=== PATIENT | male | born 1940 | race Caucasian/White ===

== ENCOUNTER 2016-11-18 22:16 | Inpatient (IN) | payer MEDICARE, BC ==
[~2016-11-18] VITALS: Ht 188 cm; Wt 76.9 kg
[~2016-11-18 22:16] MED LIST: ASPI-1085 PO; FLUT16SP EA NOSTRIL; LINA5TAB PO; OMEG100036 PO; PRAV10TA42 PO; TAMS0.4C47 PO
--- NOTE | 2016-11-18 22:16 | NUR ---
STATUS UPON PT ARRIVAL, HE ALREADY HAS AN INDWELLING CATHETER FOR URINARY RETENTION. CLEAR YELLOW URINE IN BAG
--- OUTSIDE RECORDS SUMMARY | 2016-11-18 22:19 | XMS REPORT | Continuity of Care Document ---
Author Author [facility] Organization [facility] Address Unknown Phone Unavailable Support Name Relationship Address Phone Anika REIS MD Caregiver [address] [place] [address] Unavailable HELENA BAILEY MD Caregiver [address] [place] [address] Unavailable VICKY GIBSON Next Of Kin [address] [place] [address] Insurance Providers Guarantor Ward Gibson Address [address] [place] [address] Email Payer [employer] Plan 65 Policy Number [id number] Subscriber's Name Ward Gibson Relationship 18 Self [facility] [id number] [facility] Policy Number [id number] Subscriber's Name Ward Gibson Relationship 18 Self Chief Complaint and Reason for Visit Chief Complaint Abdominal Pain Reason for Visit [id number] Constipation Problems Past Problems Medical Problem Onset Date Constipation Unknown Elevated serum creatinine Unknown Medications Current Home Medications Medication Dose Units Route Directions Days Qty Instructions Start Date Aspirin (Aspirin Ec) 81 Mg Tablet.dr 81 Mg Oral Daily 10/14/16 Fluticasone Propionate (Fluticasone Prop 50 Mcg/Actuation Nasal Zuni) 120 Zuni/16 G Zuni 1 Zuni Each Nostril Daily 16 10/14/16 Linagliptin (Tradjenta) 5 Mg Tablet 5 Mg Oral Daily 30 10/14/16 Barre-3/Dha/Epa/Fish Oil (Fish Oil 1,000 Mg Softgel) 1,000 Mg Capsule 1,000 Mg Oral Daily 1 10/14/16 Pravastatin Sodium 10 Mg Tablet 10 Mg Oral Daily 1 10/14/16 Tamsulosin Hcl 0.4 Mg Cap.er.24h 0.4 Mg Oral Daily 1 10/14/16 Social History Social History Problem Response Recorded Date/Time Onset Date Status Chewing Tobacco Status No 10/14/2016 4:33am Not Applicable Not Applicable Hx Substance Use No 10/14/2016 4:33am Not Applicable Not Applicable Hx Alcohol Use No 10/14/2016 4:33am Not Applicable Not Applicable Query Response Start Date Stop Date Smoking Status Never smoker Hospital Discharge Instructions No hospital discharge instructions. Plan of Care Discharge Date 10/14/16 5:48am Disposition 01 DISCHARGED HOME, SELF-CARE Condition at Discharge Improved Instructions/Education Provided Abdominal Pain (ED) Prescriptions See Medication Section Referrals Anika REIS MD Address: [place] [address] Additional Instructions/Education MiraLAX 17 g dose and a glass of water daily for constipation. Please follow-up with your primary care provider to repeat blood work and recheck your creatinine. Functional Status No functional status results. Allergies, Adverse Reactions, Alerts No known allergies. Immunizations No immunization records. Vital Signs Acute Vital Signs Vital Response Date/Time Temperature (Fahrenheit) 99.1 deg F (96.8 - 99.1) 10/14/2016 5:48am Temperature (Calculated Celsius) 37.56649 degrees C (36.0 - 37.3) 10/14/2016 5:48am Pulse Rate (adult) 73 bpm (60 - 100) 10/14/2016 5:48am Respiratory Rate 16 breaths/min (10 - 20) 10/14/2016 5:48am O2 Sat by Pulse Oximetry 97 % (90 - 100) 10/14/2016 5:48am Blood Pressure 133/65 mm Hg 10/14/2016 5:48am Height (Feet) 6 feet 10/14/2016 3:13am Height (Inches) 2.00 inches 10/14/2016 3:13am Weight (Kilograms) 78.100 kg 10/14/2016 3:13am Body Mass Index (BMI) 22.0 10/14/2016 3:13am Results Laboratory Results Test Name Result Units Flags Reference Collection Date/Time Result Date/ Time Comments White Blood Count 7.9 T/MM3 4.5-11.0 10/14/2016 3:46am 10/14/2016 3: 57am Red Blood Count 4.22 M/MM3 L 4.50-5.90 10/14/2016 3:46am 10/14/2016 3: 57am Hemoglobin 12.3 GM/DL L 13.5-17.5 10/14/2016 3:4610/14/2016 3:57am Hematocrit 36.3 % L 41-53 10/14/2016 3:4610/14/2016 3:57am Mean Corpuscular Volume 86.0 UM3 80-100 10/14/2016 3:4610/14/2016 3: 57am Mean Corpuscular Hemoglobin 29.1 UUG 26-34 10/14/2016 3:462016 3:57am Mean Corpuscular Hemoglobin Concent 33.9 GM/DL 31-37 10/14/2016 3:4610/14/2016 3:57am RDW Standard Deviation 38.0 FL 36.9-50.2 10/14/2016 3:4610/14/2016 3 :57am Platelet Count 192 T/MM3 130-400 10/14/2016 3:4610/14/2016 3:57am Mean Platelet Volume 11.9 UM3 9.4-12.4 10/14/2016 3:4610/14/2016 3: 57am Neutrophils (%) (Auto) 74.8 % H 33-66 10/14/2016 3:4610/14/2016 3: 57am Lymphocytes (%) (Auto) 16.3 % L 23-45 10/14/2016 3:4610/14/2016 3: 57am Monocytes (%) (Auto) 8.0 % 0-9.0 10/14/2016 3:4610/14/2016 3:57am Eosinophils (%) (Auto) 0.5 % 0-4 10/14/2016 3:4610/14/2016 3:57am Basophils (%) (Auto) 0.1 % 0-2 10/14/2016 3:4610/14/2016 3:57am Immature Granulocyte % (Auto) 0.3 % 0.0-0.5 10/14/2016 3:462016 3:57am Absolute Neutrophils (auto) 5.9 T/MM3 1.8-7.7 10/14/2016 3:46am 2016 3:57am Absolute Lymphocytes (auto) 1.3 T/MM3 1-4.8 10/14/2016 3:462016 3:57am Absolute Monocytes (auto) 0.6 T/MM3 0-0.8 10/14/2016 3:46am 10/14/2016 3:57am Absolute Eosinophils (auto) 0.0 T/MM3 0-0.5 10/14/2016 3:46am 2016 3:57am Absolute Basophils (auto) 0.0 T/MM3 0-0.2 10/14/2016 3:46am 10/14/2016 3:57am Absolute Immature Granulocyte (auto 0.02 T/MM3 0.00-0.03 10/14/2016 3: 46am 10/14/2016 3:57am Icterus Index < 2 0-7 10/14/2016 3:46am 10/14/2016 4:03am Chemistry Specimen Hemolysis < 15 0-25 10/14/2016 3:46am 10/14/2016 4 :03am 0-25: Specimen Exhibited No Hemolysis. Turbidity < 20 0-20 10/14/2016 3:46am 10/14/2016 4:03am Sodium Level 141 MEQ/L 134-144 10/14/2016 3:46am 10/14/2016 4:03am Potassium Level 4.0 MEQ/L 3.6-5 10/14/2016 3:46am 10/14/2016 4:03am Chloride Level 102 MEQ/L 98-107 10/14/2016 3:46am 10/14/2016 4:03am Carbon Dioxide Level 26 MEQ/L 22-30 10/14/2016 3:46am 10/14/2016 4: 03am Anion Gap 13 MEQ/L 5-15 10/14/2016 3:46am 10/14/2016 4:03am Blood Urea Nitrogen 36.0 MG/DL H 9-20 10/14/2016 3:46am 10/14/2016 4: 03am Creatinine 1.7 MG/DL H 0.8-1.5 10/14/2016 3:46am 10/14/2016 4:03am BUN/Creatinine Ratio 21 RATIO 6-26 10/14/2016 3:46am 10/14/2016 4:03am Glomerular Filtration Rate Calc 39 10/14/2016 3:46am 10/14/2016 4: 03am Glucose Level 188 MG/DL H 75-110 10/14/2016 3:46am 10/14/2016 4:03am Calculated Osmolality 284 MOSM/KG H 261-280 10/14/2016 3:46am 2016 4:03am Calcium Level 9.0 MG/DL 8.4-10.2 10/14/2016 3:46am 10/14/2016 4:03am Total Bilirubin 0.50 MG/DL 0.20-1.30 10/14/2016 3:46am 10/14/2016 4: 03am Alkaline Phosphatase 83 U/L 38-126 10/14/2016 3:46am 10/14/2016 4:03am Total Protein 6.4 G/DL 6.3-8.2 10/14/2016 3:46am 10/14/2016 4:03am Albumin 3.8 G/DL 3.5-5.0 10/14/2016 3:46am 10/14/2016 4:03am Globulin 2.6 G/DL 2.4-3.6 10/14/2016 3:46am 10/14/2016 4:03am Albumin/Globulin Ratio 1.5 RATIO 1.1-2.2 10/14/2016 3:46am 10/14/2016 4 :03am Aspartate Amino Transf (AST/SGOT) 16 U/L L 17-59 10/14/2016 3:46am 10/14 4:03am Alanine Aminotransferase (ALT/SGPT) 26 U/L 21-72 10/14/2016 3:46am 4:03am Urine Collection Type OROZCO INDWELLING 10/14/2016 5:00am 2016 5:07am Urine Color YELLOW YELLOW 10/14/2016 5:00am 10/14/2016 5:07am Urine Turbidity SL CLOUDY CLEAR 10/14/2016 5:00am 10/14/2016 5:07am Urine Specific [place] 1.015 1.015-1.025 10/14/2016 5:00am 2016 5:07am Urine pH 6.5 5.0-8.0 10/14/2016 5:00am 10/14/2016 5:07am Urine Leukocyte Esterase 1+ A NEGATIVE 10/14/2016 5:00am 10/14/2016 5: 07am Urine Nitrite POSITIVE A NEGATIVE 10/14/2016 5:00am 10/14/2016 5:07am Urine Protein 2+ A NEGATIVE 10/14/2016 5:00am 10/14/2016 5:07am Urine Glucose (UA) NEGATIVE NEGATIVE 10/14/2016 5:00am 10/14/2016 5: 07am Urine Ketones TRACE A NEGATIVE 10/14/2016 5:00am 10/14/2016 5:07am Urine Urobilinogen 0.2 EU/DL NORMAL 10/14/2016 5:00am 10/14/2016 5: 07am Urine Bilirubin NEGATIVE NEGATIVE 10/14/2016 5:00am 10/14/2016 5: 07am Urine Blood 3+ A NEGATIVE 10/14/2016 5:00am 10/14/2016 5:07am Urine WBC 5-10 /HPF H 0-5 10/14/2016 5:00am 10/14/2016 5:22am Urine RBC 3-5 /HPF H 0-3 10/14/2016 5:00am 10/14/2016 5:22am Urine Bacteria 1+ H NEGATIVE 10/14/2016 5:00am 10/14/2016 5:22am Urine Culture Indicated CULT REFLEXED &SETUP 10/14/2016 5:00am 5:22am Microbiology Results Procedure Source Organism/Result Collection Date/Time Result Date/Time Result Status Urine Culture Urine, Orozco Indwelling CULTURE INITIATED - RESULTS PENDING 10/14/2016 5:22am 10/14/2016 5:23am Preliminary Procedures Procedure Status Date Provider(s) X-rays bone survey complete Completed 09/04/16 Us exam abdo back wall comp Completed 10/01/16 Encounters Encounter Location Arrival/Admit Date Discharge/Depart Date Attending Provider Departed Emergency Room [facility] 10/14/16 3:13am 10/14/16 5: 48am HELENA BAILEY MD Registered [facility] 10/01/16 9:19am ALEXIS BARLOW MD Registered [facility] 09/04/16 9:32am Anika REIS MD Recent Diagnosis
[2016-11-18] MEDS ORDERED: NORMAL SALINE 1,000 ML IV ONE (22:25)
[2016-11-18] MEDS ORDERED: CEFTRIAXONE I.V. (ER USE ONLY) 1 G in NORMAL SALINE 100 ML IV ONE (22:30)
--- NOTE | 2016-11-18 22:36 | ERPDOC ---
HPI - Sepsis General Stated Complaint: UTI Time Seen by Provider: 22:25 Source: patient, family, EMS Exam Limitations: clinical condition HPI - Sepsis Initial Comments 76yo man presented to the ER by EMS tonight for AMS and hypotension. Pt was seen by his PCM earlier today and rx'ed cipro for a complicated UTI (has an indwelling benjamin 2/2 urinary retention). Pt has had a single dose this afternoon , but has not yet had his evening dose. Pt was found to be altered, with low blood pressure, elevated pulse, and decreased SaO2. Pt was previously treated for a complicated UTI 1/5mos ago. Occurred At: home Onset/Timing: Rapid Duration: 12-24 hrs Severity/Quality: moderate Modifying Factors: IMPROVES WITH: immobilization, WORSE WITH: jarring, movement Associated Sypmtoms: fever, other, weakness Hx of Similar Symptoms: No Allergies: Coded Allergies: No Known Allergies (Unverified , 10/14/16) Past History Unable to Obtain PMH Due to: clinical condition Patient Surgical History Negative for patient Past Medical History Metabolic: diabetes, hypercholesterolemia ENMT: allergies Cardiac: CAD Male: BPH Family History Family PMH: FOUND: hypertension Social History Substance Use Type: does not use Alcohol Intake: none Review of Systems Unable to Obtain ROS Due to: clinical condition Constitutional Constitutional: fever, weakness General: cloudy urine Male: retention Psychiatric Comments delirium Physical Exam General General Nourishment: well nourished, well developed, appears stated age, no acute distress, adult, thin General Body Habitus: well groomed Vitals and Pain First Documented Vital Signs Date Time Temp Pulse Resp B/P Pulse Ox O2 Delivery O2 Flow Rate FiO2 11/18/16 23:15 122/60 11/18/16 23:16 73 95 Room Air Weight: Kilograms: Height (feet): 6 Height (inches): 2.00 Triage Pain Scale: RN VS reviewed by Provider: Yes Normal Exams: Head: Normocephalic w/o trauma Eyes: Pupils are PERRLA w/ EOMI, No scleral icterus, irritation ENMT: No facial trauma, nasal exudates, pharyngeal erythema Neck: Full range of motion, without adenopathy, JVD Lymphatic: No lymphadenopathy Musculoskeletal: No tenderness, or deformity noted Integumentary: No rashes, hives, or bruising noted Neurologic: Patient is alert, and oriented Psychiatric: Patient exhibits, appropriate attention Respiratory (brief) Respiratory: FOUND: clear all rueda, equal bilaterally, symmetrical, NOT FOUND : rales, wheezes Cardiovascular (brief) Cardiac: FOUND: regular rate, regular rhythm, NOT FOUND: click, gallop, murmur , pedal edema, peripheral edema, rub Capillary Refill: <2 sec Pulses: all distal extremities, equal, strong Abdomen (brief) Abdominal Brief: FOUND: bowel normo active x4, soft, NOT FOUND: distended, hepatosplenomegaly, pulsatile mass, tender Sepsis Differential Diagnosis Considering: DKA, gastroenteritis, hypo/hyperglycemia, medication effect, meningitis, metabolic, pneumonia, pyelonephritis, sepsis, UTI Progress Results/Orders Orders Procedure Category Date Status Time Lactate - Lactic Acid LAB 11/18/16 Complete 22:25 Blood Culture ARAMIS 11/18/16 In Process 22:25 Normal Saline (Normal PHA 11/18/16 Complete Saline Iv) 22:25 Cbc W/Auto LAB 11/18/16 Complete Diff-Reflex Manual 22:25 Cmp - Comprehensive LAB 11/18/16 Complete Metabolic 22:25 Procalcitonin LAB 11/18/16 Complete 22:25 Iv Lock (Ed Only) EDM 11/18/16 Transmitted 22:25 Oxygen Administration EDM 11/18/16 Transmitted 22:25 Benjamin (Ed) EDM 11/18/16 Transmitted 22:25 Bgm (Ed) EDM 11/18/16 Transmitted 22:25 Chest 1 View RAD 11/18/16 Logged 22:25 Ceftriaxone I.V. (Er PHA 11/18/16 Complete Use Only) (Rocephin 22:30 Catheter Needs JONY 11/18/16 In Process Assessment 22:25 Bladder Scanner (Ed) EDM 11/18/16 Transmitted 22:25 UA, LAB 11/18/16 Complete Dip&Micro(Complete) & 23:35 Lab Results Laboratory Tests Test 11/18/16 22:49 11/18/16 23:35 White Blood Count 8.0T/MM3 Red Blood Count 4.70M/MM3 Hemoglobin 13.4GM/DL Hematocrit 40.2% Mean Corpuscular Volume 85.5UM3 Mean Corpuscular Hemoglobin 28.5UUG Mean Corpuscular Hemoglobin Concent 33.3GM/DL RDW Standard Deviation 40.3FL Platelet Count 164T/MM3 Mean Platelet Volume 12.1UM3 Immature Granulocyte % (Auto) % Neutrophils (%) (Auto) % Lymphocytes (%) (Auto) % Monocytes (%) (Auto) % Eosinophils (%) (Auto) % Basophils (%) (Auto) % Absolute Immature Granulocyte (auto T/MM3 Absolute Neutrophils (auto) T/MM3 Absolute Lymphocytes (auto) T/MM3 Absolute Monocytes (auto) T/MM3 Absolute Eosinophils (auto) T/MM3 Absolute Basophils (auto) T/MM3 Neutrophils % (Manual) 72.0% Band Neutrophils % 18.0% Lymphocytes % (Manual) 10.0% Absolute Neutrophils (Manual) 5.8T/MM3 Band Neutrophils # 1.4T/MM3 Lymphocytes # (Manual) 0.8T/MM3 Red Cell Morphology Comment Normal Turbidity < 20 Sodium Level 141MEQ/L Potassium Level 3.6MEQ/L Chloride Level 102MEQ/L Carbon Dioxide Level 25MEQ/L Anion Gap 14MEQ/L Blood Urea Nitrogen 27.0MG/DL Creatinine 1.7MG/DL Glomerular Filtration Rate Calc 39 BUN/Creatinine Ratio 16RATIO Glucose Level 204MG/DL Calculated Osmolality 282MOSM/KG Calcium Level 9.3MG/DL Total Bilirubin 1.20MG/DL Icterus Index < 2 Aspartate Amino Transf (AST/SGOT) 20U/L Alanine Aminotransferase (ALT/SGPT) 21U/L Alkaline Phosphatase 86U/L Total Protein 6.9G/DL Albumin 3.9G/DL Globulin 3.0G/DL Albumin/Globulin Ratio 1.3RATIO Plasma Lactate 1.7MMOL/L Procalcitonin 0.56NG/ML Chemistry Specimen Hemolysis < 15 Urine Collection Type Benjamin indwelling Urine Color Yellow Urine Turbidity Clear Urine pH 5.0 Urine Specific [place] 1.010 Urine Protein Negative Urine Glucose (UA) Negative Urine Ketones Negative Urine Blood 2+ Urine Nitrite Negative Urine Bilirubin Negative Urine Urobilinogen 0.2EU/DL Urine Leukocyte Esterase 3+ Urine RBC 1-3/HPF Urine WBC 5-10/HPF Urine Bacteria None seen Urine Culture Indicated Cult not indicated Medications Current ED Medications Sodium Chloride 1,000 ml @ 0 mls/hr Q0M ONCE IV Last administered on t 22:16; Start 11/18/16 at 22:25; Stop 11/18/16 at 22:28; Status DC Ceftriaxone Sodium 1 g/Sodium Chloride 100 ml @ 200 mls/hr O ONCE IV Last administered on 11/18/16 23:01; Start 11/18/16 at 22:30; Stop 11/18/16 at 22:59 ; Status DC Sodium Chloride (Normal Saline IV) 1,000 ml @ 150 mls/hr Q6H40M IV Last administered on 11/19/16 01:17; Start 11/19/16 at 00:05; Status UNV Progress Progress Pt refused CXR. Pt with complicated UTI headed towards urosepsis. Marked improvement following resuscitation efforts. Discussed admission vs d/c with hospitalist; after reviewing hospital course and status, will admit for overnight obs and continued treatment. Consult/PCP Consult/PCP #1: Physician Contacted: Dr. Denton (oncology) Time Called: 23:52 Time of first response: 23:58 Type of discussion: Phone Consult/PCP Discussion Details Pt has an indwelling benjamin 2/2 asymptomatic subacute retention and obstructive uropathy. W/u for prostate CA was neg. Plan for TURP in near future; pt is somewhat slow (AMS) at baseline. Consult/PCP #2: Physician Contacted: Charlie [facility] Time Called: 23:50 Time of first response: 23:55 Type of discussion: Phone Consult/PCP Discussion Details Will admit pt for overnight obs and adjustment of atbx. Departure Disposition Decision Date: Nov 19, 2016 Disposition Decision Time: 00:19 Disposition: 02 TO OBS [facility] Impression Impression Impression: Primary Impression: Complicated UTI (urinary tract infection) Additional Impressions: Obstructive uropathy Retention of urine Severity: Severe Condition: Improved Seen By: Physician only Referrals: Anika REIS MD (Family) Problems/Meds/Labs Reviewed?: Yes Medications reviewed and manag: Yes Follow up care ordered?: Yes Mental Status: Alert, Oriented Critical Care Note Total Time (mins): 30 Critical Care Spent: [id number] care of pt, Reviewing test results, Discuss the case w/staff, Documenting the MR, Discussion w/ family/DPOA During this visit the pt was: Critically Ill, At Risk of Deterioration SHALOM FOOTE Nov 18, 2016 22:36 17 at 00:15; Status UNV Morphine Sulfate (Morphine) 2 mg Q2H PRN IV PAIN; Start 11/19/16 at 00:15; Status UNV Ondansetron HCl (Zofran) 4 mg Q6H PRN IV NAUSEA &/OR VOMITING; Start 11/19/16 at 00:15; Status UNV Senna/Docusate Sodium (Senna Plus) 1 tab BID PO ; Start 11/19/16 at 09:00; Status UNV Magnesium Hydroxide (Mom) 30 ml DAILY PRN PO CONSTIPATION; Start 11/19/16 at 00 :15; Status UNV Docusate Sodium 100 mg 100 mg BID PO ; Start 11/19/16 at 09:00; Status UNV Ceftriaxone Sodium/Sodium Chloride (Rocephin/NS) 100 ml @ 100 mls/hr Q12H IV ; Start 11/19/16 at 08:00; Status UNV Progress Progress Pt refused CXR. Pt with complicated UTI headed towards urosepsis. Marked improvement following resuscitation efforts. Discussed admission vs d/c with hospitalist; after reviewing hospital course and status, will admit for overnight obs and continued treatment. Consult/PCP Consult/PCP #1: Physician Contacted: Dr. Denton (oncology) Time Called: 23:52 Time of first response: 23:58 Type of discussion: Phone Consult/PCP Discussion Details Pt has an indwelling benjamin 2/2 asymptomatic subacute retention and obstructive uropathy. W/u for prostate CA was neg. Plan for TURP in near future; pt is somewhat slow (AMS) at baseline. Consult/PCP #2: Physician Contacted: Charlie Fuentes Time Called: 23:50 Time of first response: 23:55 Type of discussion: Phone Consult/PCP Discussion Details Will admit pt for overnight obs and adjustment of atbx. Departure Disposition Decision Date: Nov 19, 2016 Disposition Decision Time: 00:19 Disposition: 02 TO OBS [facility] Impression Impression Impression: Primary Impression: Complicated UTI (urinary tract infection) Additional Impressions: Obstructive uropathy Retention of urine Severity: Severe Condition: Improved Seen By: Physician only Referrals: Anika REIS MD (Family) Problems/Meds/Labs Reviewed?: Yes Medications reviewed and manag: Yes Follow up care ordered?: Yes Mental Status: Alert, Oriented Critical Care Note Total Time (mins): 30 Critical Care Spent: [id number] care of pt, Reviewing test results, Discuss the case w/staff, Documenting the MR, Discussion w/ family/DPOA During this visit the pt was: Critically Ill, At Risk of Deterioration DECEMBERSHALOM DO Nov 18, 2016 22:36
--- NOTE | 2016-11-18 22:50 | NUR ---
CXR RADIOLOGY STAFF IN ROOM TO GET A PORTABLE CXR, HOWEVER PT IS REFUSING THE CXR. PT HAS HAD A BAD EXPERIENCE. DR FOOTE NOTIFIED.
[2016-11-18 22:55] LABS: HCT - HEMATOCRIT 40.2 % (41-53); HGB - HEMOGLOBIN 13.4 GM/DL (13.5-17.5); MEAN CORPUSCULAR HGB 28.5 UUG (26-34); MEAN CORPUSCULAR HGB CONC(MCHC 33.3 GM/DL (31-37); MEAN CORPUSCULAR VOLUME 85.5 UM3 (80-100); MEAN PLATELET VOLUME 12.1 UM3 (9.4-12.4)
[2016-11-18 23:12] LABS: LACTATE - LACTIC ACID 1.7 MMOL/L (0.6-2.2)
[2016-11-18 23:13] LABS: ALBUMIN 3.9 G/DL (3.5-5.0); ALBUMIN/GLOBULIN RATIO 1.3 RATIO (1.1-2.2); ALKALINE PHOSPHATASE 86 U/L (38-126); ALT (SGPT) 21 U/L (21-72); ANION GAP 14 MEQ/L (5-15); AST (SGOT) 20 U/L (17-59); BUN/CREATININE RATIO 16 RATIO (6-26); CALCIUM 9.3 MG/DL (8.4-10.2); CHLORIDE 102 MEQ/L (98-107); CO2 - CARBON DIOXIDE 25 MEQ/L (22-30); CREATININE 1.7 MG/DL (0.8-1.5); GLOMERULAR FILTRATION RATE 39; GLUCOSE 204 MG/DL (75-110); POTASSIUM 3.6 MEQ/L (3.6-5); SODIUM 141 MEQ/L (134-144); TOTAL PROTEIN 6.9 G/DL (6.3-8.2)
[2016-11-18 23:23] LABS: BAND NEUTROPHILS # 1.4 T/MM3; LYMPHOCYTES # (MANUAL) 0.8 T/MM3 (1-4.8); NEUTROPHILS #(MANUAL)-ABSOLUTE 5.8 T/MM3 (1.8-7.7); TOTAL CELLS COUNTED 100 %
--- NOTE | 2016-11-18 23:45 | NUR ---
IV FLUID BOLUS IS COMPLETE 231 IVF BOLUS IS COMPLETE. IVL AFTERWARDS. VSS
[2016-11-18 23:48] LABS: BLOOD, URINE 2+ (NEGATIVE); COLOR,URINE YELLOW (YELLOW); LEUKOCYTE ESTERASE ,URINE 3+ (NEGATIVE); NITRITE,URINE NEGATIVE (NEGATIVE); UROBILINOGEN,URINE 0.2 EU/DL (NORMAL)
[2016-11-18 23:57] LABS: BACTERIA,URINE NONE SEEN (NEGATIVE)
[2016-11-19] VITALS (13 sets, daily range): BP systolic 101–129; BP diastolic 55–66; PULSE 69–85; RESP 16–22; TEMP 96.9–102; O2SAT 91–97; Ht 188 cm; Wt 76.9 kg
[2016-11-19] MEDS ORDERED: HYDROCODONE/APAP 5 mg/325 mg TABLET PO PRN (00:15)
[2016-11-19] MEDS ORDERED: ONDANSETRON 4mg/2ml INJECTION IV PRN (00:15)
[2016-11-19] MEDS ORDERED: MILK OF MAGNESIA 30 ML SUSP PO PRN (00:15)
[2016-11-19] MEDS ORDERED: MORPHINE SULFATE 2 MG SYRINGE IV PRN (00:15)
--- NOTE | 2016-11-19 00:28 | HPPDOC ---
GAEL KUHN MD 11/19/16 0026: HPI - Adult Date DATE: 11/19/16 TIME: 00:23 General History of Present Illness 76 y/o male brought into the emergency room tonight Because of altered mental status. was not functioning in his usual status His family noticed throughout the day that he was getting worse. He had seen his physician earlier in the day and got prescription for or urinary infection. His granddaughter noted this evening around 8:30 to 9 that he was much more confused and recommended taking to the emergency room.. In the emergency room he was found to be tachycardic and borderline hypotensive. He received IV fluids and IV Rocephin. He had seen his primary care physician earlier today for a presumptive diagnosis of urinary tract infection. He recently had a Mosquera catheter placed About 6 weeks ago for urinary obstruction and hydroureter/hydronephrosis. He felt better following that, and has had a workup for possible prostate cancer which is reportedly "negative". Urodynamic studies are pending to determine if a suprapubic catheter or TURP may be performed. he has urodynamics scheduled for December 02 or so, the family has asked that I can possibly removed. In the interim today evaluation for the urine infection was noted, he was started on Cipro and sent home. He presented to the emergency room tonight with worsening but was improved after the therapies. He is being observed in the hospital overnight to see if warrants continued hospitalization versus okay to go home. 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 Hypertension Surgical History Patient's Surgical History: cystoscopy Current Medications Home Meds Reported Medications Linagliptin (Tradjenta) 5 Mg Tablet, 5 MG PO DAILY, #30 10/14/16 Tamsulosin HCl (Tamsulosin HCl) 0.4 Mg Cap.er.24h, 0.4 MG PO DAILY, #1 10/14/16 Pravastatin Sodium (Pravastatin Sodium) 10 Mg Tablet, 10 MG PO DAILY, #1 10/14/16 Discontinued Reported Medications Aspirin *EC* (Aspirin EC) 81 Mg Tablet.dr, 81 MG PO DAILY 10/14/16 [place]-3/Dha/Epa/Fish Oil (Fish Oil 1,000 mg Softgel) 1,000 Mg Capsule, 1000 MG PO DAILY, #1 10/14/16 Fluticasone Propionate (Fluticasone Prop 50 mcg/actuation Nasal [place]) 120 [place] /16 G [place], 1 SPRAY EA NOSTRIL DAILY, #16 10/14/16 Allergies: Coded Allergies: No Known Allergies (Unverified , 10/14/16) Family History Family History: noncontributory based on age Social History Smoking Status: Never smoker Substance Use Type: does not use Alcohol Intake: none Marital Status: Housing: house Review of Systems Unable to Obtain ROS Due to: dementia ( he is a bit tangential, and the details of his history are necessarily supported by his family.) Comments He doesn't appear toxic at this time, no distress. Physical Exam General General Nourishment: apparent age General Body Habitus: well groomed Height (Feet): 6 Height (Inches): 2.00 Eyes Brief: FOUND: EOMI, PERRL Respiratory Brief: FOUND: clear all rueda Cardiovascular (brief) Cardiac Brief: FOUND: regular rate, regular rhythm, NOT FOUND: pedal edema Abdomen (brief) Abdominal Brief: FOUND: BS normo active x4, soft, NOT FOUND: tender Neurologic RN Documented GCS Eye Opening: Verbal: Motor: Total: Laboratory Laboratory Tests Test 11/18/16 22:49 11/18/16 23:35 White Blood Count 8.0T/MM3 Red Blood Count 4.70M/MM3 Hemoglobin 13.4GM/DL Hematocrit 40.2% Mean Corpuscular Volume 85.5UM3 Mean Corpuscular Hemoglobin 28.5UUG Mean Corpuscular Hemoglobin Concent 33.3GM/DL RDW Standard Deviation 40.3FL Platelet Count 164T/MM3 Mean Platelet Volume 12.1UM3 Immature Granulocyte % (Auto) % Neutrophils (%) (Auto) % Lymphocytes (%) (Auto) % Monocytes (%) (Auto) % Eosinophils (%) (Auto) % Basophils (%) (Auto) % Absolute Immature Granulocyte (auto T/MM3 Absolute Neutrophils (auto) T/MM3 Absolute Lymphocytes (auto) T/MM3 Absolute Monocytes (auto) T/MM3 Absolute Eosinophils (auto) T/MM3 Absolute Basophils (auto) T/MM3 Neutrophils % (Manual) 72.0% Band Neutrophils % 18.0% Lymphocytes % (Manual) 10.0% Absolute Neutrophils (Manual) 5.8T/MM3 Band Neutrophils # 1.4T/MM3 Lymphocytes # (Manual) 0.8T/MM3 Red Cell Morphology Comment Normal Turbidity < 20 Sodium Level 141MEQ/L Potassium Level 3.6MEQ/L Chloride Level 102MEQ/L Carbon Dioxide Level 25MEQ/L Anion Gap 14MEQ/L Blood Urea Nitrogen 27.0MG/DL Creatinine 1.7MG/DL Glomerular Filtration Rate Calc 39 BUN/Creatinine Ratio 16RATIO Glucose Level 204MG/DL Calculated Osmolality 282MOSM/KG Calcium Level 9.3MG/DL Total Bilirubin 1.20MG/DL Icterus Index < 2 Aspartate Amino Transf (AST/SGOT) 20U/L Alanine Aminotransferase (ALT/SGPT) 21U/L Alkaline Phosphatase 86U/L Total Protein 6.9G/DL Albumin 3.9G/DL Globulin 3.0G/DL Albumin/Globulin Ratio 1.3RATIO Plasma Lactate 1.7MMOL/L Procalcitonin 0.56NG/ML Chemistry Specimen Hemolysis < 15 Urine Collection Type Mosquera indwelling Urine Color Yellow Urine Turbidity Clear Urine pH 5.0 Urine Specific [place] 1.010 Urine Protein Negative Urine Glucose (UA) Negative Urine Ketones Negative Urine Blood 2+ Urine Nitrite Negative Urine Bilirubin Negative Urine Urobilinogen 0.2EU/DL Urine Leukocyte Esterase 3+ Urine RBC 1-3/HPF Urine WBC 5-10/HPF Urine Bacteria None seen Urine Culture Indicated Cult not indicated Sepsis Diagnostic Criteria Sepsis SIRS Criteria: Acute mental status chg, Temp<=96.8 or >=100.4, Pulse >= 90 beats/min, Bands >= 10% Severe Sepsis SBP <90 or MAP <65 Assessment & Plan Problems: (1) Complicated UTI (urinary tract infection) Status: Acute Assessment & Plan: Rocephin has been ordered, he does appear to respond clinically. We'll follow up on urine culture results, urine culture was drawn earlier today at primary care office. Related to indwelling Mosquera catheter present on admission. (2) Retention of urine Status: Chronic Assessment & Plan: Urology appointment follow-up is pending, urodynamics testing to decide whether or not a true cord be helpful, or suprapubic catheter may be necessary or bladder/detrusor instability present. (3) Obstructive uropathy Status: Chronic (4) Acute encephalopathy Status: Acute Assessment & Plan: This appears improved with blood pressure improvement and IV fluid resu (5) Sepsis Status: Acute Assessment & Plan: He received 30 cc/kg bolus of IV crystalloid in the emergency room. His blood pressure responded nicely and his pulse went down. His altered mental status is improved. This as well as basing sepsis on in addition to his reported temperature from home and 2. He had improved greatly, and actually I do think he warrants inpatient stay as continued IV antibiotics and fluids for a couple of days to make sure his first few. Culture results properly. Because of his complicated by the presence of a catheter as well. Code Status Full Code Hospital Course Summary Disclaimer The hospital course summary below is not to be considered part of the above Progress Note. ASAF LONDON MD 11/19/16 1217: Past Medical History Current Medications Home Meds Reported Medications Linagliptin (Tradjenta) 5 Mg Tablet, 5 MG PO DAILY, #30 10/14/16 Tamsulosin HCl (Tamsulosin HCl) 0.4 Mg Cap.er.24h, 0.4 MG PO DAILY, #1 10/14/16 Pravastatin Sodium (Pravastatin Sodium) 10 Mg Tablet, 10 MG PO DAILY, #1 10/14/16 Discontinued Reported Medications Aspirin *EC* (Aspirin EC) 81 Mg Tablet.dr, 81 MG PO DAILY 10/14/16 [place]-3/Dha/Epa/Fish Oil (Fish Oil 1,000 mg Softgel) 1,000 Mg Capsule, 1000 MG PO DAILY, #1 10/14/16 Fluticasone Propionate (Fluticasone Prop 50 mcg/actuation Nasal [place]) 120 [place] /16 G [place], 1 SPRAY EA NOSTRIL DAILY, #16 10/14/16 Allergies: Coded Allergies: No Known Allergies (Unverified , 10/14/16) Assessment & Plan Problems: (1) Severe sepsis Status: Acute (2) Complicated UTI (urinary tract infection) Status: Acute (3) Acute encephalopathy Status: Acute Assessment & Plan: This appears improved with blood pressure improvement and IV fluid resu (4) Diabetes mellitus Status: Chronic (5) Retention of urine Status: Chronic Assessment & Plan: Subacute, Urology appointment follow-up is pending, urodynamics testing scheduled. Dr. Bull (6) Obstructive uropathy Status: Chronic (7) Monoclonal gammopathy of undetermined significance Status: Chronic (8) CKD (chronic kidney disease) Status: Chronic Qualifiers: Chronic kidney disease stage: stage 3 (moderate) Qualified Codes: N18.3 - Chronic kidney disease, stage 3 (moderate) Assessment Dr. Solomon's note reviewed. Mr. Gibson interviewed and examined with multiple family members providing supplemental history. CC: Confusion/chilling HPI: Mr. Gibson 76-year-old male with recent urinary retention requiring placement of a Mosquera catheter 6-8 weeks ago (managed by Dr. Bull) who noted that things didn't seem right at a luncheon yesterday with development of temperature at that time. Subsequently returned home and was seen by his primary care physician early in the afternoon where urinalysis was described as hazy with +3 blood, +2 leukocyte esterase, and positive for nitrates. Urine culture is pending. Patient was started on Cipro and took one dose. Later in the afternoon family noted that he was confused and he began having chills and shaking. He presented to the emergency room per EMS reported hypotension and tachycardia in addition to decreased oxygen saturation. Fluid bolus was administered. Family described him as eating "out of it". Mosquera catheter was last changed on 11/05. Patient is hospitalized at this time for management of sepsis resume to be of urinary origin. 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 Sam. There is family history of malignancy with a brother who had cancer that involved his heart and lungs, mother dying of leukemia, and a son who's had colon cancer. Patient is a full code and reports that he wants his "family" to be his alternate decision makers but has not completed DPOA paperwork. ROS: 10 point review currently is positive for minor leakage around the Mosquera catheter, frequent spitting up small amounts of phlegm unchanged recently, increased serum protein prompting recent workup with Dr. Sam, but the patient denies cough, sputum production, sore throat, URI symptoms, diarrhea, abdominal pain or any other pain. He's had no nausea or vomiting. He denies fever prior to yesterday. Remainder of multisystem review is negative or as per history of present illness. EXAM: General-99.3 (subsequently climbing to 101.7), 129/66, alert, cooperative, fluent speech HEENT-PERRL, EOMI without nystagmus, conjugate gaze, facial structures symmetric , oropharynx clear, tongue midline, neck supple and without adenopathy Lungs-respirations nonlabored, good airflow, crackles at the bases bilaterally Cardiac-regular rhythm, S1-S2 Abd-soft, nontender, without palpable mass, nontender over her bladder and no CVA tenderness Ext-without edema Skin-without rash or wounds Neuro-cranial nerves II through XII intact, motor tone and power normal, proximal/distal power retained, no drift, sensation intact to light touch 4 extremities, no tremors present Psych-home, cooperative, able to provide history excluding events of yesterday evening A/P: Discussed with Dr. Isaac and Dr. Bull. Recurrent fever this morning-additional blood cultures being drawn and CBC being repeated. Urinalysis with trivial abnormalities on admission here. Dr. Isaac will fax urine culture results from his office when available. Urine culture in October positive for Klebsiella resistant only to amoxicillin. Continue ceftriaxone at present. Chest x-ray to be obtained due to minor abnormalities on examination. May require further imaging of the kidneys to exclude perinephric abscess although there is no tenderness that would suggest this diagnosis. Patient has had extensive testing done recently with multiple IVs and cannot exclude bacteremia as a result. Convert to inpatient. Plan/Intensity of Service Discussed with Dr. Isaac/Jorgito. Past records reviewed. Laboratory data reviewed, x -rays being obtained. GAEL KUHN MD Nov 19, 2016 00:26 ASAF LONDON MD Nov 19, 2016 12:17 -rays being obtained. GAEL KUHN MD Nov 19, 2016 00:26 ASAF LONDON MD Nov 19, 2016 12:17
--- NOTE | 2016-11-19 00:50 | NUR ---
REPORT CALLED REPORT TO LAKIA NGUYEN
--- NOTE | 2016-11-19 01:05 | NUR ---
TRANSFER TO [facility] PT IS TRANSFERRED TO [facility] VIA CART. FAMILY ACCOMPANIES.
--- NOTE | 2016-11-19 01:05 | NUR ---
admit status ambulates few steps from cart to bed. Denies dizziness as up. Mosquera in place, draining to leg bag, will change bag to larger drainage bag. Urine straw colored, clear. Pt. denies pain. Family accompanies.
[2016-11-19] MEDS: NORMAL SALINE 1,000 ML IV SCH ×3 (01:17→23:05)
--- NOTE | 2016-11-19 02:00 | NUR ---
Dr. Mccarthy and pt. visit at length with Dr. Miller per telemed. Questions answered, plan of care explained. Pt. cooperative with admission process
--- NOTE | 2016-11-19 05:43 | NUR ---
rest sleeps restfully, resp. unlabored. Repositions self for comfort
[2016-11-19] MEDS ORDERED: CEFTRIAXONE 1 G in NORMAL SALINE 100 ML IV SCH ×2 (06:15→09:00)
[2016-11-19] MEDS: DOCUSATE SODIUM 100 MG CAPSULE PO SCH ×3 (09:00→21:15)
[2016-11-19] MEDS: SENNA + DOCUSATE TAB PO SCH ×3 (09:00→21:15)
[2016-11-19] MEDS: CEFTRIAXONE 1 G in NORMAL SALINE 100 ML IV SCH (09:44)
[2016-11-19] MEDS: ACETAMINOPHEN 325 MG TABLET PO PRN ×3 (10:54→19:22)
--- NOTE | 2016-11-19 11:00 | NUR ---
CONFUSION PT IS HAVING SOME CONFUSION, FAMILY REPORTS THIS IS NOT NORMAL FOR HIM. REPORTS HE HAD SOME CONFUSION LAST NIGHT WELL. PT ORIENTATED TO PERSON, PLACE, TIME HOWEVER SPEECH IS RANDOM AT TIMES. PT AMBULATED, ATTEMPTED TO HAVE A BM WITHOUT SUCCESS. BED ALARM ON. CALLS FOR NEEDS.
[2016-11-19] MEDS: INSULIN ASPART 100 UNIT/ML SQ PRN ×2 (11:14→21:18)
--- NOTE | 2016-11-19 11:14 | NUR ---
TEMP/BGM/STATUS TEMP ELEVATED AT 101.5 ORAL, PT SHAKING REPORTS HE IS COLD. PRN TYLENOL GIVEN. CHECKED BGM CHARTED, ATTEMPTED TO GIVE SS INSULIN, PT REFUSED INSULIN. EXPLAINED TO PATIENT BLOOD SUGARS CAN BE ELEVATED WITH AN INFECTION. PT REPORTS HE WILL NOT TAKE INSULIN. NOTIFIED DR. LONDON, DOSE WASTED. FAMILY VERY UPSET PT IS SHAKING, EXPLAINED TO PATIENT THIS CAN BE COMMON WITH AN ELEVATED TEMP AND INFECTION. FAMILY STILL UPSET. PT UPSET HIS HOME MEDS WERE NOT GIVEN AT DOSING TIMES HE USUALLY TAKES AT HOME. EXPLAINED TO PATIENT MEDS CANNOT BE GIVEN IN THE HOSPITAL UNTIL AN ORDER IS OBTAINED. DR. LONDON WAS IN TO SEE PATIENT AND RESUMED HOME MEDS, DOSES GIVEN TODAY.
--- NOTE | 2016-11-19 11:55 | NUR ---
MEDICATIONS/STATUS ATTEMPTED TO GIVE DOCUSATE AND SENNA PLUS TO PT. PT REFUSED TO TAKE THEM. PT WAS EXPLAINED ABOUT THESE MEDICATIONS. PT STATED "I DON'T NEED THESE MEDICATIONS BECAUSE I HAVE A BOWEL MOVEMENT EVERY DAY AFTER I EXERCISE"
[2016-11-19 12:59] LABS: HCT - HEMATOCRIT 33.7 % (41-53); MEAN CORPUSCULAR HGB 28.7 UUG (26-34); MEAN CORPUSCULAR HGB CONC(MCHC 32.6 GM/DL (31-37); MEAN PLATELET VOLUME 12.5 UM3 (9.4-12.4); RED BLOOD COUNT 3.83 M/MM3 (4.50-5.90); WBC - WHITE BLOOD COUNT 8.9 T/MM3 (4.5-11.0)
[2016-11-19 13:11] LABS: LACTATE - LACTIC ACID 1.4 MMOL/L (0.6-2.2)
[2016-11-19 13:12] LABS: ANION GAP 10 MEQ/L (5-15); BUN/CREATININE RATIO 17 RATIO (6-26); CALCIUM 8.1 MG/DL (8.4-10.2); CHLORIDE 107 MEQ/L (98-107); CO2 - CARBON DIOXIDE 22 MEQ/L (22-30); CREATININE 1.5 MG/DL (0.8-1.5); GLOMERULAR FILTRATION RATE 46; GLUCOSE 160 MG/DL (75-110); POTASSIUM 3.8 MEQ/L (3.6-5); SODIUM 139 MEQ/L (134-144)
[2016-11-19 13:19] LABS: BAND NEUTROPHILS # 1.8 T/MM3; BURR CELLS 1+; LYMPHOCYTES # (MANUAL) 0.3 T/MM3 (1-4.8); METAMYELOCYTES # 0.3 T/MM3; NEUTROPHILS #(MANUAL)-ABSOLUTE 6.6 T/MM3 (1.8-7.7); OVALOCYTES 1+; POIKILOCYTOSIS 1+; TOTAL CELLS COUNTED 100 %
--- NOTE | 2016-11-19 13:36 | NUR ---
CM CM IN TO VISIT PT. CM DISCUSSED ROLE OF CM AND PROVIDED CONTACT INFORMATION. PT REPORTS HE NEEDS DIABETES EDUCATION AND DENIES HOME NEEDS AT THIS TIME. PT/FAMILY AWARE TO CONTACT CM SHOULD NEEDS ARISE.
--- NOTE | 2016-11-19 15:17 | NUR ---
MEDICATION/ TEMPERATURE TYLENOL WAS GIVEN FOR TEMP REQUESTED.
--- NOTE | 2016-11-19 16:12 | NUR ---
DM screen No recent A1c; CKD stage IV; DM2 x 15 year; DM home meds: Tradjenta; no close family history; states that he got DM from double dose of Lipitor. Diet: Cardiac consistent cart [address] visited with pt, and family who were at his bedside. Pt states he would rather have less food at meal, so RD suggested he order smaller meal, and then order a snack between meals, would could aid with glycemic control. Pt has attended a DM class, but does not want to return because the focus in on overweight people. RD suggested MNT, and gave contact information to Ofelia Cosme, his . RD stated that education would cover DM2 and CKD.
--- NOTE | 2016-11-19 16:21 | DI ---
INDICATION: ITS.REASON: fever, abnormal exam PROCEDURE: CHEST 2-VIEWS UPRIGHT (PA \T\ LAT) Encounter: Initial COMPARISON: October 14, 2016 FINDINGS: Slight blunting of the costophrenic angles on the frontal view with suggestion of posterior lower lobe opacity on the lateral view. There is no pneumothorax. The heart size, mediastinal contours and pulmonary vascularity are within normal limits. There is no significant skeletal abnormality. IMPRESSION: Small area of lower lobe atelectasis or possibly developing pneumonia with trace effusions. Continued radiographic follow-up is recommended. .
--- NOTE | 2016-11-19 19:23 | NUR ---
TEMP PRN TYLENOL GIVEN PER PT REQUEST FOR INCREASING TEMP CHARTED.
--- NOTE | 2016-11-19 19:49 | NUR ---
SHIFT SUMMARY PT AMBULATED IN THE HALLS TODAY X1 ASSIST. TEMP RECURRENT AND PRN WAS GIVEN. FAMILY PRESENT DURING THE DAY. PT REFUSED SS INSULIN TODAY.
[2016-11-20] VITALS (7 sets, daily range): BP systolic 115–149; BP diastolic 63–69; PULSE 55–87; RESP 14–24; TEMP 97.5–99.3; O2SAT 92–98
[2016-11-20] MEDS: ACETAMINOPHEN 325 MG TABLET PO PRN (01:06)
[2016-11-20 05:42] LABS: BASOPHILS % (AUTO) 0.3 % (0-2); HGB - HEMOGLOBIN 11.1 GM/DL (13.5-17.5); IMMATURE GRANULOCYTE # (AUTO) 0.02 T/MM3 (0.00-0.03); IMMATURE GRANULOCYTE % (AUTO) 0.3 % (0.0-0.5); LYMPHOCYTES # (AUTO) 0.5 T/MM3 (1-4.8); LYMPHOCYTES % (AUTO) 8.5 % (23-45); MEAN CORPUSCULAR HGB 28.5 UUG (26-34); MEAN CORPUSCULAR HGB CONC(MCHC 32.6 GM/DL (31-37); MEAN CORPUSCULAR VOLUME 87.2 UM3 (80-100); MEAN PLATELET VOLUME 12.7 UM3 (9.4-12.4); MONOCYTES # (AUTO) 0.5 T/MM3 (0-0.8); MONOCYTES % (AUTO) 7.1 % (0-9.0); NEUTROPHILS #(AUTO)-ABSOLUTE 5.4 T/MM3 (1.8-7.7); NEUTROPHILS % (AUTO) 83.8 % (33-66); WBC - WHITE BLOOD COUNT 6.4 T/MM3 (4.5-11.0)
[2016-11-20 05:54] LABS: ALBUMIN 2.7 G/DL (3.5-5.0); ANION GAP 9 MEQ/L (5-15); BUN/CREATININE RATIO 14 RATIO (6-26); CALCIUM 8.2 MG/DL (8.4-10.2); CHLORIDE 109 MEQ/L (98-107); CO2 - CARBON DIOXIDE 24 MEQ/L (22-30); CREATININE 1.6 MG/DL (0.8-1.5); GLOMERULAR FILTRATION RATE 42; GLUCOSE 153 MG/DL (75-110); MAGNESIUM 1.9 MG/DL (1.6-2.3); PHOSPHORUS 2.5 MG/DL (2.5-4.5); SODIUM 142 MEQ/L (134-144)
[2016-11-20] MEDS: NORMAL SALINE 1,000 ML IV SCH ×2 (05:55→14:20)
--- NOTE | 2016-11-20 06:28 | NUR ---
SUMMARY PT ALERT AND ORIENTED. IV IN THE LEFT AC, NS AT 150 ML/HR. DENIES PAIN AT THIS TIME. BUT HAS REQUESTED TYLENOL FOR FEVER WITH REPORTS OF CHILLS. UP WITH ONE AND A GAIT BELT. CHRONIC OROZCO IN PLACE A PATENT TO DEPENDENT DRAINAGE.
[2016-11-20] MEDS ORDERED: PRAVASTATIN 10 MG TABLET PO SCH (09:00)
[2016-11-20] MEDS ORDERED: LINAGLIPTIN 5 MG PO SCH (09:00)
[2016-11-20] MEDS: SENNA + DOCUSATE TAB PO SCH ×2 (09:00→21:20)
[2016-11-20] MEDS ORDERED: TAMSULOSIN 0.4 MG CAPSULE PO SCH (09:00)
[2016-11-20] MEDS: DOCUSATE SODIUM 100 MG CAPSULE PO SCH ×2 (09:00→21:20)
[2016-11-20] MEDS: CEFTRIAXONE 1 G in NORMAL SALINE 100 ML IV SCH (09:30)
[2016-11-20] MEDS: LINAGLIPTIN 5 MG PO SCH (09:30)
[2016-11-20] MEDS: INSULIN ASPART 100 UNIT/ML SQ PRN ×2 (11:36→21:21)
--- NOTE | 2016-11-20 12:25 | NUR ---
DIABETES EDUCATION Patient has attended diabetes education classes in the past. Plans to follow-up with RICKY REMY after discharge. Reports having a glucose meter at home but cannot recall which brand and knowing how to treat hypoglycemia. Reviewed effect of illness on blood sugar levels. Will ask RICKY REMY to continue to follow patient during hospitalization.
[2016-11-20] MEDS: TAMSULOSIN 0.4 MG CAPSULE PO SCH (14:18)
--- NOTE | 2016-11-20 17:08 | PNPDOC ---
Subjective Date DATE: 11/20/16 TIME: 16:57 Subjective Mr. Gibson was seen midmorning at which time he reported that he felt really good today. He describe diaphoresis overnight after temperature of 102 at 8 PM after which there's been no additional fever. He denies dysuria, hematuria, or flank pain. He denied dyspnea, nausea, heartburn, or lightheadedness. Appetite is good. Objective Vital Signs Vital signs Vital Signs Date Time Temp Pulse Resp B/P Pulse Ox O2 Delivery O2 Flow Rate FiO2 11/20/16 15:24 98.4 69 17 141/67 97 Room Air I/O 6299/4940 EXAM General-NAD, alert, fluent speech HEENT-conjunctiva clear, sclera anicteric, oropharynx clear Lungs-respirations nonlabored, good airflow, breath sounds clear Cardiac-regular rhythm, S1-S2 Abd-soft, nontender, bowel sounds present Ext-without edema Neuro-moving extremities spontaneously Psych-oriented 3, pleasant Height (Feet): 6 Height (Inches): 2.00 Weight (Kilograms): 80.000 Laboratory Laboratory Laboratory Tests 11/18/16 22:49 11/19/16 12:50 11/20/16 04:56 Magnesium 1.9, phosphorus 2.5 Laboratory Tests 11/18/16 22:49 11/19/16 12:50 11/20/16 04:56 Microbiology Microbiology Microbiology Date/Time Source Procedure Growth Status 11/19/16 12:50 Peripheral/Iv Start Blood Culture - Preliminary NO GROWTH AFTER 24 HOURS Resulted 11/19/16 12:50 Peripheral/Iv Start Blood Culture - Preliminary NO GROWTH AFTER 24 HOURS Resulted 11/18/16 22:49 Peripheral/Iv Start Gram Stain - Final Resulted 11/18/16 22:49 Blood Culture - Preliminary Escherichia Coli Resulted 11/18/16 22:49 Peripheral/Iv Start Gram Stain - Final Resulted 11/18/16 22:49 Blood Culture - Preliminary Escherichia Coli Resulted Sepsis Diagnostic Criteria Sepsis SIRS Criteria: Acute mental status chg, Temp<=96.8 or >=100.4, Pulse >= 90 beats/min, Bands >= 10% Severe Sepsis SBP <90 or MAP <65 Assessment & Plan Problems: (1) Severe sepsis Status: Acute (2) Complicated UTI (urinary tract infection) Status: Acute (3) Acute encephalopathy Status: Acute Assessment & Plan: This appears improved with blood pressure improvement and IV fluid resu (4) Diabetes mellitus Status: Chronic (5) Retention of urine Status: Chronic Assessment & Plan: Subacute, Urology appointment follow-up is pending, urodynamics testing scheduled. Dr. 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 Escherichia coli and initial blood cultures, repeat cultures negative to date. Continue ceftriaxone. Urinalysis obtained in the emergency room unremarkable, outpatient urine culture pending-will contact Dr. Isaac's office tomorrow if do not receive a fax in the morning. Discussed CT abdomen/pelvis with contrast to look for intra-abdominal pathology or perinephric abscess with the patient. He declined study at this time due to concern about contrast nephropathy, asked that I speak with his manager grocery (Dr. Poli Sidhu) which was done and patient remains reluctant to proceed with imaging despite Dr. Sidhu's approval of contrast at current creatinine. Mild anemia following hydration, continue to monitor. Plan/Intensity of Service Discussed with Dr. Sidhu. Laboratory data reviewed. Code Status Full Code Hospital Course Summary Disclaimer The hospital course summary below is not to be considered part of the above Progress Note. Hospital Course Summary 11/19/16 Admitted with sepsis, thought due to urinary source. Rocephin initiated. Blood cultures reported positive for Escherichia coli within 24 hours of admission. 11/20/16 Clinically improving, renal function stable. Escherichia coli and initial blood cultures, repeat cultures negative to date. Continue ceftriaxone. Urinalysis obtained in the emergency room unremarkable, outpatient urine culture pending-will contact Dr. Isaac's office tomorrow if do not receive a fax in the morning. Discussed CT abdomen/pelvis with contrast to look for intra-abdominal pathology or perinephric abscess with the patient. He declined study at this time due to concern about contrast nephropathy, asked that I speak with his manager grocery (Dr. Poli Sidhu) which was done and patient remains reluctant to proceed with imaging despite Dr. Sidhu's approval of contrast at current creatinine. Mild anemia following hydration, continue to monitor. ASAF LONDON MD Nov 20, 2016 17:00
--- NOTE | 2016-11-20 19:47 | NUR ---
SHIFT SUMMARY PT IS ALERT AND ORIENTED. PT DID NOT COMPLAIN OF PAIN. PT IS UP X1 ASSIST. FAMILY AT BEDSIDE. NEW PERIPHERALLY IV IN HIS RIGHT FOREARM.
[2016-11-20] MEDS: PRAVASTATIN 10 MG TABLET PO SCH (21:20)
[2016-11-21] VITALS (8 sets, daily range): BP systolic 127–157; BP diastolic 69–81; PULSE 56–70; RESP 14–20; TEMP 97.5–98.9; O2SAT 93–100
[2016-11-21] MEDS: NORMAL SALINE 1,000 ML IV SCH ×2 (03:36→17:45)
[2016-11-21 05:19] LABS: EOSINOPHILS % (AUTO) 0.7 % (0-4); HCT - HEMATOCRIT 33.9 % (41-53); HGB - HEMOGLOBIN 11.1 GM/DL (13.5-17.5); IMMATURE GRANULOCYTE # (AUTO) 0.01 T/MM3 (0.00-0.03); IMMATURE GRANULOCYTE % (AUTO) 0.2 % (0.0-0.5); LYMPHOCYTES % (AUTO) 21.6 % (23-45); MEAN CORPUSCULAR HGB 28.4 UUG (26-34); MEAN CORPUSCULAR HGB CONC(MCHC 32.7 GM/DL (31-37); MEAN CORPUSCULAR VOLUME 86.7 UM3 (80-100); MEAN PLATELET VOLUME 12.7 UM3 (9.4-12.4); MONOCYTES # (AUTO) 0.5 T/MM3 (0-0.8); MONOCYTES % (AUTO) 10.7 % (0-9.0); NEUTROPHILS #(AUTO)-ABSOLUTE 3.1 T/MM3 (1.8-7.7); NEUTROPHILS % (AUTO) 66.8 % (33-66); RED BLOOD COUNT 3.91 M/MM3 (4.50-5.90); WBC - WHITE BLOOD COUNT 4.6 T/MM3 (4.5-11.0)
[2016-11-21 05:30] LABS: ANION GAP 10 MEQ/L (5-15); BUN/CREATININE RATIO 15 RATIO (6-26); CALCIUM 8.4 MG/DL (8.4-10.2); CHLORIDE 108 MEQ/L (98-107); CO2 - CARBON DIOXIDE 26 MEQ/L (22-30); CREATININE 1.5 MG/DL (0.8-1.5); GLOMERULAR FILTRATION RATE 46; GLUCOSE 128 MG/DL (75-110); POTASSIUM 3.7 MEQ/L (3.6-5); SODIUM 144 MEQ/L (134-144)
[2016-11-21] MEDS: SENNA + DOCUSATE TAB PO SCH ×2 (08:13→20:37)
[2016-11-21] MEDS: DOCUSATE SODIUM 100 MG CAPSULE PO SCH ×2 (08:13→20:37)
[2016-11-21] MEDS: CEFTRIAXONE 1 G in NORMAL SALINE 100 ML IV SCH (08:15)
[2016-11-21] MEDS: LINAGLIPTIN 5 MG PO SCH (08:16)
[2016-11-21] MEDS ORDERED: IODIXANOL 320 MG/ML 100ml INJECTION IV ONE ×2 (09:58)
[2016-11-21] MEDS ORDERED: NORMAL SALINE 100 ML ONE (09:59)
[2016-11-21] MEDS ORDERED: SALINE FLUSH 10ml SYRINGE ONE (09:59)
--- NOTE | 2016-11-21 12:12 | DI ---
Indication: ITS.REASON: E. Coli bacteremia, eval for abscess PROCEDURE: CT ABD/PELVIS W/CONTRAST ONLY: Encounter: Initial Comparison: None Technique: Axial CT images were performed through the abdomen and pelvis after the administration of intravenous contrast. Coronal and sagittal two-dimensional reformats. Automated Exposure Control and Iterative Reconstruction dose reducing techniques were utilized. Contrast: Visipaque 320 85 mL Findings: Trace pleural effusions with bibasilar mild atelectasis. Mitral valvular calcifications. Mild cardiomegaly. Small anterior pericardial effusion. The liver appears normal. Gallbladder is contracted with wall enhancement. The spleen, pancreas and adrenal glands are within normal limits. Small probable bilateral renal cysts with areas of cortical loss and scarring in the right kidney. There is some mild right urothelial enhancement and mild right hydroureter. Bladder is decompressed with a Mosquera catheter but shows significant wall thickening and adjacent fat stranding. Mild left hydroureter as well. No free fluid identified. Sigmoid diverticulosis without evidence of acute diverticulitis. No rim-enhancing fluid collection or abscess identified. No evidence of a bowel obstruction. 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 Impression: 1. Significant inflammation surrounding the thick-walled bladder consistent with a cystitis. Urothelial enhancement and hydroureter suggests either vesicoureteral reflux or developing pyeloureteronephritis. 2. Trace pleural effusions and lower lobe probable atelectasis. .
--- NOTE | 2016-11-21 12:27 | NUR ---
CM THIS WORKER MET WITH PT IN ROOM. PT LAYING IN BED AT THIS TIME. ALSO PRESENT WAS AND DAUGHTER, SOL. THIS WORKER REVIEWED DISCHARGE PLAN IN DETAIL WITH PT AND FAMILY. PT IS LIVING INDEPENDENTLY WITH ON THE CAMPUS OF [facility]. PT PLANS TO RETURN HOME WITH . DISCUSSED NEEDS. PT IS INTERESTED IN HOME HEALTH SERVICES AND ASKED THIS WORKER TO CONTACT [facility] TO GET RECOMMENDATIONS ON WHO TO USE FOR THIS SERVICE. FAMILY ALSO INQUIRED REGARDING TRANSITIONAL NURSE AT [facility] TO EASE WITH TRANSITION TO HOME. PT AND FAMILY DENIED OTHER NEEDS AT THIS TIME. CONTACT INFORMATION GIVEN TO FAMILY AT THIS TIME AND ENCOURAGED TO CONTACT THIS WORKER WITH ANY ADDITIONAL NEEDS. THIS WORKER SPOKE WITH JANEEN AT [facility]. A TRANSITIONAL NURSE WILL PLAN TO FOLLOW UP WITH THE FAMILY DIRECTLY REGARDING DISCHARGE PLANNING. THE TRANSITIONAL NURSE WILL MAKE REGULAR CONTACT WITH THE PT/FAMILY BY PHONE FOR 30 DAYS AFTER THE TRANSITION.
--- NOTE | 2016-11-21 12:59 | NUR ---
STATUS PT CURRENTLY RESTING IN BED WITH BED ALARM ON AND CALL LIGHT IN REACH. OROZCO PATENT AND DRAINING CLEAR YELLOW URINE. DENIES PAIN. ON ROOM AIR. UP WITH STANDBY. USES CALL LIGHT APPROPRIATELY. DENIES NEEDS AT THIS TIME.
[2016-11-21] MEDS: TAMSULOSIN 0.4 MG CAPSULE PO SCH (14:03)
--- NOTE | 2016-11-21 14:59 | NUR ---
ISHA THIS WORKER MET WITH PT AND ON THIS DATE. PT AND REPORTED THAT THEY WOULD PREFER TO DO THE OUTPATIENT INFUSIONS VS DOING THEM WITH HOME HEALTH. THIS WORKER SPOKE TO JANEEN AT [facility] AND PT WILL HAVE A TRANSITIONAL NURSE, ELLE, ASSIGNED TO THEM AND WILL FOLLOW FOR 30 DAYS POST HOSPITALIZATION. PT AND DENIED ANY OTHER NEEDS AT THIS TIME. PT AND UNDERSTAND THE NEED TO COME TO OUTPATIENT INFUSION EVERYDAY FOR THE NEXT APPROX 12 DAYS. PT AND ABLE TO DO THIS DAILY. CONTACT INFORMATION GIVEN TO PT AND FAMILY AT THIS TIME.
--- NOTE | 2016-11-21 15:04 | NUR ---
NOTIFIED [employer] ATTENDANT DR LONDON WOULD LIKE A MIDLINE PLACED FOR OUTPATIENT INFUSION ANTIBIOTIC TREATMENT.
--- NOTE | 2016-11-21 15:31 | NUR ---
MNT r/t DM2 & 2 g Na Diet: CC 2000 & 2 g Na; Rd visited with pt, and Ofelia Cosme was at his bedside. He is on SS insulin and was awaiting procedure. Pt expressed concern about meals, monitoring BG and other issues when he goes home. ISHA entered as RD to discuss these issues. RD reviewed basic DM meal planning guidelines, and suggested that pt continue to eat 3 meals daily at home, according to DM plate. RD will set up appointment for outpatient MNT r/t DM2 & CKD.
--- NOTE | 2016-11-21 18:20 | NUR ---
STATUS PT ALERT AND ORIENTED X3. UP WITH ONE PERSON STANDBY ASSIST AND GAIT BELT. FRIENDLY AND COOPERATIVE WITH STAFF. DENIES NEEDS AT THIS TIME. MIDLINE PLACED FOR OUTPATIENT ANTIBIOTICS. PT PLANS ON DISCHARGING TOMORROW. ON ROOM AIR.
--- NOTE | 2016-11-21 18:42 | PNPDOC ---
Subjective Date DATE: 11/21/16 TIME: 18:31 Subjective Mr. Gibson was seen with his early this afternoon. He reports he feels great. Has had no further fevers or chills and denies dysuria or flank pain. He denied nausea or vomiting, has had no dyspnea, and denies lightheadedness. He's been ambulating in the halls without difficulty and reports his appetite is good. He decided to proceed with CT imaging of the abdomen earlier today. Objective Vital Signs Vital signs Vital Signs Date Time Temp Pulse Resp B/P Pulse Ox O2 Delivery O2 Flow Rate FiO2 11/21/16 15:29 98.4 70 14 152/76 96 Room Air I/O 5505/8050 EXAM General-NAD, alert, talkative HEENT-conjunctiva clear, sclera anicteric, conjugate gaze Lungs-respirations nonlabored, good airflow, breath sounds clear Cardiac-regular rhythm, S1-S2 Abd-soft, nontender, no fullness or mass palpable, no flank tenderness present Ext-without edema Psych-pleasant, oriented 3 Height (Feet): 6 Height (Inches): 2.00 Weight (Kilograms): 77.500 Laboratory Laboratory Laboratory Tests 11/20/16 04:56 11/21/16 04:30 Laboratory Tests 11/20/16 04:56 11/21/16 04:30 Blood glucoses with range of 127-231 over the past 24 hours Microbiology Microbiology Microbiology Date/Time Source Procedure Growth Status 11/19/16 12:50 Peripheral/Iv Start Blood Culture - Preliminary NO GROWTH AFTER 48 HOURS Resulted 11/19/16 12:50 Peripheral/Iv Start Blood Culture - Preliminary NO GROWTH AFTER 48 HOURS Resulted 11/18/16 22:49 Peripheral/Iv Start Gram Stain - Final Complete 11/18/16 22:49 Blood Culture - Final Escherichia Coli Complete 11/18/16 22:49 Peripheral/Iv Start Gram Stain - Final Complete 11/18/16 22:49 Blood Culture - Final Escherichia Coli Complete Outpatient urine culture positive >100,000 Klebsiella oxytocia with different resistance pattern than Escherichia coli identified in the patient's blood. Culture report on the patient's paper chart. Radiology CT of the abdomen and pelvis reviewed by myself demonstrating marked thickening of the bladder with Mosquera present, mild hydroureter bilaterally R>L, probable bilateral small renal cysts, areas of cortical loss and scarring in the right kidney. Mild right enhancement reported on the right suggestive of vesicoureteral reflux or possibly pyelo-ureteral nephritis. Gallbladder unremarkable, diverticulosis without diverticulitis present. No evidence of abscess. Sepsis Diagnostic Criteria Sepsis SIRS Criteria: Acute mental status chg, Temp<=96.8 or >=100.4, Pulse >= 90 beats/min, Bands >= 10% Severe Sepsis SBP <90 or MAP <65 Assessment & Plan Problems: (1) Severe sepsis Status: Acute (2) Complicated UTI (urinary tract infection) Status: Acute (3) Acute encephalopathy Status: Acute Assessment & Plan: This appears improved with blood pressure improvement and IV fluid resu (4) Diabetes mellitus Status: Chronic (5) Retention of urine Status: Chronic Assessment & Plan: Subacute, Urology appointment follow-up is pending, urodynamics testing scheduled. Dr. 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 Escherichia coli and initial blood cultures, repeat cultures drawn 11/19 negative at 48 hours. Both the Klebsiella identified in the patient's urine prior to admission and Escherichia coli in the blood are sensitive to ceftriaxone; origin of Escherichia coli unclear. Patient will require 2 weeks of antibiotics from negative cultures (11/19 through 12/02) with repeat blood cultures recommended following completion of antibiotics. Midline catheter to be placed for continuation of outpatient antibiotics. Reassess renal function in the morning following dye administration with CT. Patient reassured that low ionic dye used and minimal risk present. Continue IV hydration for [address] Isaac updated on plans and discrepancy and organism urine/blood. Discharge anticipated 11/22. Plan/Intensity of Service Discussed with Dr. Isaac. Laboratory data reviewed. CT scan reviewed by myself and discussed with Dr. Isaac. Discussed with case management and nursing. Lengthy patient discussion. Code Status Full Code Hospital Course Summary Disclaimer The hospital course summary below is not to be considered part of the above Progress Note. Hospital Course Summary 11/19/16 Admitted with sepsis, thought due to urinary source. Rocephin initiated. Blood cultures reported positive for Escherichia coli within 24 hours of admission. 11/20/16 Clinically improving, renal function stable. Escherichia coli and initial blood cultures, repeat cultures negative to date. Continue ceftriaxone. Urinalysis obtained in the emergency room unremarkable, outpatient urine culture pending-will contact Dr. Isaac's office tomorrow if do not receive a fax in the morning. Discussed CT abdomen/pelvis with contrast to look for intra-abdominal pathology or perinephric abscess with the patient. He declined study at this time due to concern about contrast nephropathy, asked that I speak with his book illustrator (Dr. Poli Sidhu) which was done and patient remains reluctant to proceed with imaging despite Dr. Sidhu's approval of contrast at current creatinine. Mild anemia following hydration, continue to monitor. 11/22 Clinically improving, renal function stable. Escherichia coli and initial blood cultures, repeat cultures drawn 11/19 negative at 48 hours. Both the Klebsiella identified in the patient's urine prior to admission and Escherichia coli in the blood are sensitive to ceftriaxone; origin of Escherichia coli unclear. Patient will require 2 weeks of antibiotics from negative cultures (11/19 through 12/02) with repeat blood cultures recommended following completion of antibiotics. Midline catheter to be placed for continuation of outpatient antibiotics. Reassess renal function in the morning following dye administration with CT. Patient reassured that low ionic dye used and minimal risk present. Continue IV hydration for [address] Isaac updated on plans and discrepancy and organism urine/blood. Discharge anticipated 11/22. ASAF LONDON MD Nov 21, 2016 18:37
[2016-11-21] MEDS: PRAVASTATIN 10 MG TABLET PO SCH (20:37)
[2016-11-22 04:00] VITALS: BP 133/70; PULSE 58; RESP 18; TEMP 98.7; O2SAT 93
[2016-11-22 05:39] LABS: ANION GAP 10 MEQ/L (5-15); BUN/CREATININE RATIO 14 RATIO (6-26); CALCIUM 8.4 MG/DL (8.4-10.2); CHLORIDE 106 MEQ/L (98-107); CO2 - CARBON DIOXIDE 26 MEQ/L (22-30); CREATININE 1.4 MG/DL (0.8-1.5); GLOMERULAR FILTRATION RATE 49; GLUCOSE 136 MG/DL (75-110); POTASSIUM 3.7 MEQ/L (3.6-5); SODIUM 142 MEQ/L (134-144)
[2016-11-22 07:26] VITALS: BP 152/70; PULSE 16; PULSE 68; RESP 16; RESP 68; TEMP 97.6; O2SAT 96
[2016-11-22] MEDS: LINAGLIPTIN 5 MG PO SCH (07:30)
--- NOTE | 2016-11-22 07:36 | NUR ---
SHIFT SUMMARY: PT IS A&OX3, FRIENDLY AND COOPERATIVE. PT'S SLEPT IN THE ROOM LAST NIGHT. PT IS IV LOCKED, LEFT UPPER ARM MIDLINE FLUSHES AND ASPIRATES; UP WITH ONE STANDBY ASSIST, ROOM AIR, BGM'S WITHIN RANGE. CALL LIGHT WITHIN REACH, BED ALARM ON.
[2016-11-22] MEDS: DOCUSATE SODIUM 100 MG CAPSULE PO SCH (09:00)
[2016-11-22] MEDS: SENNA + DOCUSATE TAB PO SCH (09:00)
--- NOTE | 2016-11-22 10:41 | NUR ---
CM CM IN TO VISIT WITH PT. HE IS ALERT AND ORIENTED. HE PLANS TO DC HOME TODAY. HE IS REASSURED THAT CM WILL SET UP INFUSIONS TO BEGIN THURSDAY. INSTRUCTIONS FOR INFUSION ARE REVIEWED WITH PT AND INCLUDED IN DC PACKET. HE IS GIVEN UPDATED CM CONTACT INFORMATION. Addendum: 11/22/16 at 1042 by SINAN CHAND RN Amended: Links added.
[2016-11-22] MEDS: CEFTRIAXONE 1 G in NORMAL SALINE 100 ML IV SCH (10:56)
[2016-11-22] MEDS ORDERED: NORMAL SALINE 500 ML IV PRN (11:00)
[2016-11-22] MEDS: INSULIN ASPART 100 UNIT/ML SQ PRN (11:10)
[2016-11-22] MEDS ORDERED: HYDR-4246 PO (11:59)
[2016-11-22] MEDS ORDERED: CEFT1VIA IV (11:59)
[2016-11-22] MEDS ORDERED: DOCU-168 PO (11:59)
[2016-11-22 12:38] VITALS: BP 123/71; PULSE 74; RESP 16; TEMP 96.6; O2SAT 96
--- NOTE | 2016-11-22 13:58 | DSPDOC ---
General Date Date DATE: 11/22/16 TIME: 13:51 Attending Physician Elver Vaca MD Admitting Physician Elver Vaca MD Consulting Physician Admitting Diagnosis UTI, possible sepsis Discharge Diagnosis Sepsis E. Coli bacteremia Complicated klebsiella UTI, present at admission Hypertension CKD III Thrombocytopenia Urinary retention requiring benjamin catheter [facility] Laboratory Laboratory Tests Test 11/21/16 04:30 11/21/16 05:47 11/21/16 12:01 11/21/16 15:26 White Blood Count 4.6T/MM3 (4.5-11.0) Red Blood Count 3.91M/MM3 (4.50-5.90) Hemoglobin 11.1GM/DL (13.5-17.5) Hematocrit 33.9% (41-53) Mean Corpuscular Volume 86.7UM3 (80-100) Mean Corpuscular Hemoglobin 28.4UUG (26-34) Mean Corpuscular Hemoglobin Concent 32.7GM/DL (31-37) RDW Standard Deviation 41.2FL (36.9-50.2) Platelet Count 116T/MM3 (130-400) Mean Platelet Volume 12.7UM3 (9.4-12.4) Immature Granulocyte % (Auto) 0.2% (0.0-0.5) Neutrophils (%) (Auto) 66.8% (33-66) Lymphocytes (%) (Auto) 21.6% (23-45) Monocytes (%) (Auto) 10.7% (0-9.0) Eosinophils (%) (Auto) 0.7% (0-4) Basophils (%) (Auto) 0.0% (0-2) Absolute Immature Granulocyte (auto 0.01T/MM3 (0.00-0.03) Absolute Neutrophils (auto) 3.1T/MM3 (1.8-7.7) Absolute Lymphocytes (auto) 1.0T/MM3 (1-4.8) Absolute Monocytes (auto) 0.5T/MM3 (0-0.8) Absolute Eosinophils (auto) 0.0T/MM3 (0-0.5) Absolute Basophils (auto) 0.0T/MM3 (0-0.2) Turbidity < 20 (0-20) Sodium Level 144MEQ/L (134-144) Potassium Level 3.7MEQ/L (3.6-5) Chloride Level 108MEQ/L (98-107) Carbon Dioxide Level 26MEQ/L (22-30) Anion Gap 10MEQ/L (5-15) Blood Urea Nitrogen 23.0MG/DL (9-20) Creatinine 1.5MG/DL (0.8-1.5) Glomerular Filtration Rate Calc 46 BUN/Creatinine Ratio 15RATIO (6-26) Glucose Level 128MG/DL (75-110) Calculated Osmolality 283MOSM/KG (261-280) Calcium Level 8.4MG/DL (8.4-10.2) Icterus Index < 2 (0-7) Chemistry Specimen Hemolysis < 15 (0-25) Glucometer 127mg/dL (75-110) 176mg/dL (75-110) 176mg/dL (75-110) Test 11/21/16 20:34 11/22/16 04:24 11/22/16 06:05 11/22/16 11:06 Glucometer 187mg/dL (75-110) 150mg/dL (75-110) 204mg/dL (75-110) Turbidity < 20 (0-20) Sodium Level 142MEQ/L (134-144) Potassium Level 3.7MEQ/L (3.6-5) Chloride Level 106MEQ/L (98-107) Carbon Dioxide Level 26MEQ/L (22-30) Anion Gap 10MEQ/L (5-15) Blood Urea Nitrogen 20.0MG/DL (9-20) Creatinine 1.4MG/DL (0.8-1.5) Glomerular Filtration Rate Calc 49 BUN/Creatinine Ratio 14RATIO (6-26) Glucose Level 136MG/DL (75-110) Calculated Osmolality 278MOSM/KG (261-280) Calcium Level 8.4MG/DL (8.4-10.2) Icterus Index < 2 (0-7) Chemistry Specimen Hemolysis < 15 (0-25) Microbiology Blood cultures 2/2 + for E. coli 11/18; repeat cultures form 11/19 with NGTD PATIENT: WARD SÁNCHEZ Act#:[id number] Loc: MED 140-P Specimen: [id number] Collected: 11/18/16 Received: 11/18/[address]: SHALOM FOOTE DO Source: PERIPHERAL Procedure Result Verified MICROBIOLOGY GRAM STAIN W Final 11/19/16 RESULT GRAM NEGATIVE RODS BLOOD CULTURE. Final 11/21/1685 Organism 1 ESCHERICHIA COLI CULTURE COMMENT: GROWTH IN THE AEROBIC BOTTLE CULTURE COMMENT: GROWTH IN THE ANAEROBIC BOTTLE E COLI INTERP ARAMIS ------ --------- AMPICILLIN S <=2 CEFAZOLIN S <=4 CEFEPIME S <=1 CEFTAZIDIME S <=1 CEFTRIAXONE S <=1 ERTAPENEM S <=0.5 GENTAMICIN S <=1 LEVOFLOXACIN S 1 MEROPENEM S <=0.25 TIGECYCLINE S <=0.5 TOBRAMYCIN S <=1 TRIMETH/SULFA R >=320 PIPERACILL/TAZO S <=4 BLOOD CULTURE. Preliminary (changed) 11/20/16-1057 Organism 1 ESCHERICHIA COLI CULTURE COMMENT: GROWTH IN THE AEROBIC BOTTLE CULTURE COMMENT: GROWTH IN THE ANAEROBIC BOTTLE BLOOD CULTURE. Preliminary (changed) 11/19/16-1518 Organism 1 ESCHERICHIA COLI CULTURE COMMENT: GROWTH IN THE AEROBIC BOTTLE BLOOD CULTURE. Preliminary (changed) 11/18/16-2250 CULTURE INITIATED - RESULTS PENDING History of Present Illness 76 y/o male brought into the emergency room tonight Because of altered mental status. was not functioning in his usual status His family noticed throughout the day that he was getting worse. He had seen his physician earlier in the day and got prescription for or urinary infection. His granddaughter noted this evening around 8:30 to 9 that he was much more confused and recommended taking to the emergency room.. In the emergency room he was found to be tachycardic and borderline hypotensive. He received IV fluids and IV Rocephin. He had seen his primary care physician earlier today for a presumptive diagnosis of urinary tract infection. He recently had a Benjamin catheter placed About 6 weeks ago for urinary obstruction and hydroureter/hydronephrosis. He felt better following that, and has had a workup for possible prostate cancer which is reportedly "negative". Urodynamic studies are pending to determine if a suprapubic catheter or TURP may be performed. he has urodynamics scheduled for December 02 or so, the family has asked that I can possibly removed. In the interim today evaluation for the urine infection was noted, he was started on Cipro and sent home. He presented to the emergency [facility] with worsening but was improved after the therapies. He is being observed in the hospital overnight to see if warrants continued hospitalization versus okay to go home. Hospital Course 11/19/16 Admitted with sepsis, thought due to urinary source. Rocephin initiated. Blood cultures reported positive for Escherichia coli within 24 hours of admission. 11/20/16 Clinically improving, renal function stable. Escherichia coli and initial blood cultures, repeat cultures negative to date. Continue ceftriaxone. Urinalysis obtained in the emergency room unremarkable, outpatient urine culture pending-will contact Dr. Reis's office tomorrow if do not receive a fax in the morning. Discussed CT abdomen/pelvis with contrast to look for intra-abdominal pathology or perinephric abscess with the patient. He declined study at this time due to concern about contrast nephropathy, asked that I speak with his cyanide pot tender (Dr. Poli Sidhu) which was done and patient remains reluctant to proceed with imaging despite Dr. Sidhu's approval of contrast at current creatinine. Mild anemia following hydration, continue to monitor. 11/22 Clinically improving, renal function stable. Escherichia coli and initial blood cultures, repeat cultures drawn 11/19 negative at 48 hours. Both the Klebsiella identified in the patient's urine prior to admission and Escherichia coli in the blood are sensitive to ceftriaxone; origin of Escherichia coli unclear. Patient will require 2 weeks of antibiotics from negative cultures (11/19 through 12/02) with repeat blood cultures recommended following completion of antibiotics. Midline catheter to be placed for continuation of outpatient antibiotics. Reassess renal function in the morning following dye administration with CT. Patient reassured that low ionic dye used and minimal risk present. Continue IV hydration for [address] Reis updated on plans and discrepancy and organism urine/blood. Discharge anticipated 11/22. Problems: (1) Severe sepsis Status: Acute (2) Complicated UTI (urinary tract infection) Status: Acute (3) Acute encephalopathy Status: Acute Assessment & Plan: This appears improved with blood pressure improvement and IV fluid resu (4) Diabetes mellitus Status: Chronic (5) Retention of urine Status: Chronic Assessment & Plan: Subacute, Urology appointment follow-up is pending, urodynamics testing scheduled. Dr. Bull (6) Obstructive uropathy Status: Chronic (7) Monoclonal gammopathy of undetermined significance Status: Chronic (8) CKD (chronic kidney disease) Status: Chronic Code Status Full Code Home Meds Active Scripts Ceftriaxone Sodium (Ceftriaxone) 1 Gm Vial, 1 G IV DAILY for 10 Days Prov:CRAIG CHILDERS APRN 11/22/16 Docusate Sodium (Colace) 100 Mg Capsule, 100 MG PO BID for 30 Days, #60 CAP Prov:CRAIG CHILDERS APRN 11/22/16 Hydrocodone/Acetaminophen (Mchenry 5-325 Tablet) 5-325 Tablet, 1 TAB PO Q6H Y for PAIN for 30 Days, #120 TAB Prov:CRAIG CHILDERS V ASSISTANT SOFTBALL COACH 11/22/16 Reported Medications Linagliptin (Tradjenta) 5 Mg Tablet, 5 MG PO DAILY, #30 10/14/16 Tamsulosin HCl (Tamsulosin HCl) 0.4 Mg Cap.er.24h, 0.4 MG PO DAILY, #1 10/14/16 Pravastatin Sodium (Pravastatin Sodium) 10 Mg Tablet, 10 MG PO DAILY, #1 10/14/16 Discontinued Reported Medications Aspirin *EC* (Aspirin EC) 81 Mg Tablet.dr, 81 MG PO DAILY 10/14/16 [place]-3/Dha/Epa/Fish Oil (Fish Oil 1,000 mg Softgel) 1,000 Mg Capsule, 1000 MG PO DAILY, #1 10/14/16 Fluticasone Propionate (Fluticasone Prop 50 mcg/actuation Nasal Liberty) 120 Liberty /16 G Liberty, 1 SPRAY EA NOSTRIL DAILY, #16 10/14/16 Face to Face Encounter I met with patient on the day of dismissal and discussed follow up appointments , medications, and safety plan. Exam at the time of discharge: VSS as reviewed in [employer] NCAT, MMM, anicteric sclerae CV regular, nontachy RESP clear bilaterally without rales/rhonchi/wheezing GI soft, NTTP/ND Benjamin intact and draining light yellow urine EXT no edema, WWP, no rashes Discharge Disposition He is discharging home with family support. IV antibiotic infusions for rocephin have been arranged for the next 10 days. Midline intact in the RUE for infusions, examined with no erythema or drainage. Copies To 1: Anika REIS MD, AMANDA M MD Nov 22, 2016 13:55
[2016-11-22] MEDS: TAMSULOSIN 0.4 MG CAPSULE PO SCH (14:10)
--- NOTE | 2016-11-22 15:10 | NUR ---
ANTIBIOTICS/SCRIPTS PATIENT SHOWED WERE TO GO FOR OUTPATIENT INFUSIONS. NORCO SCRIPT PLACED IN CHART. PT REPORTS HE DOES NOT TAKE THE NORCO AND DID NOT NEED A SCRIPT FOR IT.
--- NOTE | 2016-11-22 15:10 | NUR ---
DISCHARGE/STATUS PT IS A&OX3. PT AMBULATED IN THE [facility] WITH 1 ASSIST, WALKER AND GAIT BELT. DENIED PAIN TODAY. CALLED FOR NEEDS. UP TO THE RECLINER FOR MEALS. FAMILY AND FRIENDS VISITED. NO PRN'S GIVEN. PT'S MEDS GIVEN OFF SCHEDULED REQUESTED BY PATIENT. DISCHARGE INSTRUCTIONS WERE PROVIDED TO PATIENT, PACKET SENT WITH PATIENT, INCLUDING IN DEPTH TEACHING PROVIDED ON THE OROZCO-INCLUDING HOW TO CHANGE FROM LEG BAG TO DEPENDENT DRAINAGE BAG AT BEDTIME AND BACK TO THE LEG BAG DURING THE DAY, HOW TO CLEAN BAGS WHEN SWITCHING FROM ONE TO THE OTHER, SHOWERING FOR OROZCO AND MIDLINE. PT INSTRUCTED TO KEEP MIDLINE DRESSING C/D/I AND NOTIFY INFUSION THERAPY IF LINE/DRESSING ARE COMPROMISED. PT DISCHARGED WITH LEG BAG ON AND MIDLINE INTACT. MIDLINE FLUSHED AND NEW CLEAN CAP COVER PLACED PRIOR TO DISCHARGE. NEW OROZCO BAG SENT WITH PATIENT FOR BEDTIME. ALCOHOL PADS SENT WITH PATIENT TO CLEAN OROZCO WHEN CHANGING. BELONGINGS PACKED AND SENT WITH PATIENT. IVL DC'D. ID BAND REMOVED AND SENT WITH PATIENT PER HIS REQUEST. PT AMBULATED OUT WITH PHOTOGRAPHIC ARTIST.
--- NOTE | 2016-11-24 12:56 | NUR ---
FOLLOW UP CALL LEFT MESSAGE AT THIS TIME.
== END 2016-11-22 15:10 | disposition home or self-care (01) | DRG 698 ==
LOC: ED 22:16 → EDHOLD 11-19 00:05 → MED 11-19 01:05 → OBSVTOIN 11-19 02:35
PROVIDERS: ADMIT Pediatrics; ATTEND Hospitalist
DX: T83.511A Infection and inflammatory reaction due to indwelling urethral catheter, initial encounter (principal); A41.51 Sepsis due to Escherichia coli [E. coli]; G93.40 Encephalopathy, unspecified; R65.20 Severe sepsis without septic shock; R33.9 Retention of urine, unspecified; N13.9 Obstructive and reflux uropathy, unspecified; E11.40 Type 2 diabetes mellitus with diabetic neuropathy, unspecified; I12.9 Hypertensive chronic kidney disease with stage 1 through stage 4 chronic kidney disease, or unspecified chronic kidney disease; N18.3 Chronic kidney disease, stage 3 (moderate); B96.1 Klebsiella pneumoniae [K. pneumoniae] as the cause of diseases classified elsewhere; D47.2 Monoclonal gammopathy; E11.22 Type 2 diabetes mellitus with diabetic chronic kidney disease; Z79.82 Long term (current) use of aspirin; D69.6 Thrombocytopenia, unspecified
CPT/HCPCS: 36415; 80048; 80053; 80069; 81001; 82948; 83605; 83735; 84145; 85025; 87040; 87150; 87186; 87205; 96361; 96365